=== PATIENT | female | born 1980 | race Caucasian/White ===

== ENCOUNTER → 2024-05-28 08:48 | Outpatient (REF) | payer OTHER, SELFPAY | LOC: WDC 08:48 | PROVIDERS: ATTENDING PHYSICIAN Physician Assistant | DX: Z12.31 Encounter for screening mammogram for malignant neoplasm of breast (principal) | CPT/HCPCS: 77063; 77067 ==

== ENCOUNTER → 2025-06-03 08:45 | Outpatient (REF) | payer OTHER, SELFPAY | LOC: WDC 08:45 | PROVIDERS: ATTENDING PHYSICIAN Physician Assistant | DX: Z12.31 Encounter for screening mammogram for malignant neoplasm of breast (principal) | CPT/HCPCS: 77063; 77067 ==